=== PATIENT | male | born 1980 | race African-American/Black ===

== ENCOUNTER 2017-02-11 11:16 | Emergency (ER) | payer SELFPAY ==
[~2017-02-11] VITALS: Ht 182.9 cm; Wt 95.0 kg
[~2017-02-11 11:16] MED LIST: HUM100IN SQ
[2017-02-11] MEDS ORDERED: ACETAMINOPHEN 325MG TABLET PO ONE (12:30)
[2017-02-11 14:10] VITALS: BP 144/98
== END 2017-02-11 14:12 | disposition home or self-care (01) ==
LOC: ER 12:26
DX: S13.4XXA Sprain of ligaments of cervical spine, initial encounter (principal); S09.90XA Unspecified injury of head, initial encounter; R03.0 Elevated blood-pressure reading, without diagnosis of hypertension; E11.9 Type 2 diabetes mellitus without complications; Z79.4 Long term (current) use of insulin; V49.9XXA Car occupant (driver) (passenger) injured in unspecified traffic accident, initial encounter; Y93.89 Activity, other specified; Y92.89 Other specified places as the place of occurrence of the external cause; Y99.8 Other external cause status
CPT/HCPCS: 70450; 72125; 99284; Z7610

== ENCOUNTER 2017-10-19 14:22 | Inpatient (IN) | payer OTHER ==
[~2017-10-19] VITALS: Ht 172.7 cm; Wt 78.2 kg
[2017-10-19] MEDS ORDERED: SODIUM CHLORIDE 0.9% 1,000 ML IV ONE ×2 (14:40)
[2017-10-19] MEDS ORDERED: INSULIN REGULAR (HUMULIN R) 300UNITS/3ML SUBCUT ONE (14:45)
[2017-10-19 15:14] LABS: HEMATOCRIT. 26.7 % (42.0-52.0); HEMOGLOBIN. 8.1 g/dL (14.0-18.0); MEAN CORPUSCULAR HEMOGLOBIN 28.2 pg (28.0-32.0); MEAN CORPUSCULAR VOLUME 92.8 fL (80.0-94.0); MEAN PLATELET VOLUME 6.9 fl (7.4-10.4); PLATELET 303 x1000/uL (130-400); RED BLOOD CELL COUNT 2.88 mill/uL (4.7-6.1); RED CELL DISTRIBUTION WIDTH 14.1 % (11.6-14.6)
[2017-10-19 15:20] LABS: PARTIAL THROMBOPLASTIN TIME 28.2 sec (23.4-31.0); PROTHROMBIN TIME 10.8 sec (9.4-11.6)
[2017-10-19 15:25] LABS: CHLORIDE 102 mEq/L (98-107)
[2017-10-19 15:28] LABS: BG BASE EXCESS -18.6 mmol/L (-2.0-2.0); BG CARBOXYHEMOGLOBIN 0.3 % (0.5-1.5); BG DEOXYHEMOGLOBIN 3.6 % (0.0-5.0); BG FRACTION INSPIRED OXYGEN 21; BG HCO3 ACT 6.4 mmol/L (22.0-26.0); BG METHEMOGLOBIN 0.3 % (0.0-1.5); BG OXYGEN SATURATION 96.4 % (92.0-98.5); BG OXYHEMOGLOBIN 95.8 % (94.0-97.0); BG PCO2 14.7 mmHg (35.0-45.0); BG PH 7.258 (7.350-7.450); BG PO2 102.5 mmHg (75.0-100.0); BG SAMPLE SITE RIGHT RADIAL; BG VENT MODE ROOM AIR
[2017-10-19 15:32] LABS: TROPONIN I < 0.02 ng/mL (0.00-0.04)
[2017-10-19] MEDS ORDERED: VANCOMYCIN 1 G PREMIX 200 ML IV ONE (15:45)
[2017-10-19] MEDS ORDERED: LORAZEPAM 2MG/ML CPJ IV ONE ×2 (15:45→18:00)
[2017-10-19] MEDS ORDERED: SODIUM CHLORIDE 0.9% 1000ML BAG (SEPSIS BOLUS) IV ONE (15:45)
[2017-10-19] MEDS ORDERED: PIPERACILLIN/TAZ 3.375G PREMIX 50 ML IV ONE (15:45)
[2017-10-19] MEDS ORDERED: INSULIN REGULAR (HUMULIN R) UD 100 UNITS/ML SYR IV ONE (15:45)
[2017-10-19] MEDS ORDERED: INSULIN REGULAR (DRIP) 100 UNITS in SODIUM CHLORIDE 0.9% 99 ML IV NR (16:00)
[2017-10-19 16:07] LABS: BETA HYDROXYBUTYRATE > 10.0 mMol/L (0.0-0.3)
[2017-10-19 16:20] LABS: PLATELET ESTIMATE NORMAL
[2017-10-19 16:46] LABS: CLARITY URINE CLOUDY (CLEAR); COLOR URINE YELLOW (YELLOW); KETONES URINE 3+ (NEGATIVE); LEUKOCYTE ESTERASE URINE NEGATIVE (NEGATIVE); NITRITE URINE NEGATIVE (NEGATIVE); OCCULT BLOOD URINE 1+ (NEGATIVE); PROTEIN URINE NEGATIVE (NEGATIVE); SPECIFIC GRAVITY URINE 1.024 (1.005-1.030); UROBILINOGEN URINE 0.2 E.U./dL (0.2-1.0)
[2017-10-19 17:05] LABS: *AMPHETAMINES SCREEN URINE NEGATIVE (NEGATIVE); *BARBITURATES SCREEN URINE NEGATIVE (NEGATIVE); *BENZODIAZEPINES SCREEN URINE NEGATIVE (NEGATIVE); *COCAINE SCREEN URINE NEGATIVE (NEGATIVE); CANNABINOID URINE SCREEN NEGATIVE (NEGATIVE); METHADONE URINE SCREEN NEGATIVE (NEGATIVE); OPIATES URINE SCREEN NEGATIVE (NEGATIVE); PHENCYCLIDINE URINE SCREEN NEGATIVE (NEGATIVE)
[2017-10-19] MEDS ORDERED: INSULIN REGULAR (DRIP) 100 UNITS in SODIUM CHLORIDE 0.9% 100 ML IV SCH (17:35)
[2017-10-19] MEDS ORDERED: DIPHENHYDRAMINE 50MG/ML VIAL IV PRN (17:45)
[2017-10-19] MEDS ORDERED: MAGNESIUM/ALUMINUM HYDROXIDE/SIMETHICONE 30ML UDC PO PRN (17:45)
[2017-10-19] MEDS ORDERED: KETOROLAC 15MG/ML VIAL IV PRN (17:45)
[2017-10-19] MEDS ORDERED: ONDANSETRON HCL 4MG/2ML VIAL IV PRN (17:45)
[2017-10-19] MEDS ORDERED: GUAIFENESIN 200MG/10ML SUGAR FREE UDC PO PRN (17:45)
[2017-10-19] MEDS ORDERED: NITROGLYCERIN 0.4MG TABLET SL SL PRN (17:45)
[2017-10-19] MEDS ORDERED: CLONIDINE 0.1MG TABLET PO PRN (17:45)
[2017-10-19] MEDS ORDERED: IPRATROPIUM/ALBUTEROL 0.5-3(2.5)MG/3ML NEB INH PRN (17:45)
[2017-10-19] MEDS ORDERED: ACETAMINOPHEN 325MG TABLET PO PRN (17:45)
[2017-10-19] MEDS ORDERED: DOCUSATE SODIUM 100MG CAPSULE PO PRN (17:45)
[2017-10-19] MEDS ORDERED: NA PHOS,M-B/NA PHOS,DI-BA ENEMA 118ML PR PRN (17:45)
[2017-10-19] MEDS ORDERED: DEXTROSE 50% WATER 50ML SYRINGE IV PRN ×2 (17:45)
[2017-10-19] MEDS ORDERED: LEVOFLOXACIN 500MG PREMIX 100 ML IV SCH (17:45)
[2017-10-19 17:52] LABS: PHOSPHORUS 4.9 mg/dL (2.5-4.9)
[2017-10-19] MEDS ORDERED: CEFTRIAXONE 2 G PREMIX 50 ML IV ONE (18:00)
[2017-10-19] MEDS ORDERED: ACYCLOVIR INJ 600 MG in DEXT 5% WATER 100 ML IV ONE (18:00)
[2017-10-19 18:15] LABS: TOTAL IRON BINDING CAPACITY 151 ug/dL (250-450)
[2017-10-19 19:40] LABS: GLUCOSE CSF 511 mg/dL (41-75)
[2017-10-19 19:43] LABS: PHOSPHORUS 3.9 mg/dL (2.5-4.9)
[2017-10-19 19:58] LABS: VITAMIN B12 SERUM >2000 pg/mL pg/mL (211-911)
[2017-10-19 22:10] LABS: PHOSPHORUS 2.8 mg/dL (2.5-4.9)
[2017-10-20] VITALS (27 sets, daily range): BP systolic 109–178; BP diastolic 67–101
[2017-10-20] MEDS ORDERED: CEFTRIAXONE 2 G PREMIX 50 ML IV NR (03:30)
[2017-10-20] MEDS ORDERED: LEVOFLOXACIN 500MG PREMIX 100 ML IV NR (05:45)
[2017-10-20] MEDS ORDERED: SODIUM CHLORIDE 0.9% 1,000 ML IV SCH (08:00)
[2017-10-20] MEDS: BLOOD SUGAR DIAGNOSTIC STRIP TEST SCH ×16 (08:09→23:05)
[2017-10-20] MEDS: PANTOPRAZOLE SODIUM 40 MG/VIAL IV SCH (08:30)
[2017-10-20] MEDS: INSULIN REGULAR (DRIP) 100 UNITS in SODIUM CHLORIDE 0.9% 100 ML IV SCH ×2 (09:00→13:34)
[2017-10-20 11:51] LABS: HEMATOCRIT. 24.1 % (42.0-52.0); HEMOGLOBIN. 7.7 g/dL (14.0-18.0); MEAN CORPUSCULAR HEMOGLOBIN 28.1 pg (28.0-32.0); MEAN PLATELET VOLUME 6.9 fl (7.4-10.4); PLATELET 265 x1000/uL (130-400); RED BLOOD CELL COUNT 2.73 mill/uL (4.7-6.1); RED CELL DISTRIBUTION WIDTH 13.5 % (11.6-14.6)
[2017-10-20 12:05] LABS: CHLORIDE 120 mEq/L (98-107)
[2017-10-20 12:21] LABS: MEAN CORPUSCULAR VOLUME 89.1 fL (80.0-94.0)
[2017-10-20 13:37] LABS: PLATELET ESTIMATE NORMAL
[2017-10-20 14:05] LABS: PHOSPHORUS 2.5 mg/dL (2.5-4.9)
[2017-10-20] MEDS ORDERED: POTASSIUM CHLORIDE INJ 30 MEQ in SODIUM CHLORIDE 0.45% 1,000 ML IV SCH (15:00)
[2017-10-20] MEDS ORDERED: VANCOMYCIN 1,500 MG in SODIUM CHLORIDE 0.9% 250 ML IV SCH (15:00)
[2017-10-20] MEDS: DEXT 5%/0.45% NACL KCL 30MEQ/L 1,000 ML IV SCH (16:06)
[2017-10-20] MEDS ORDERED: DEXT 5%/0.45% NACL KCL 30MEQ/L 1,000 ML IV SCH (17:00)
[2017-10-20 17:16] LABS: CHLORIDE 124 mEq/L (98-107)
[2017-10-20 23:54] LABS: CHLORIDE 125 mEq/L (98-107)
[2017-10-21] VITALS (48 sets, daily range): BP systolic 113–170; BP diastolic 57–117
[2017-10-21] MEDS: BLOOD SUGAR DIAGNOSTIC STRIP TEST SCH ×19 (01:00→21:00)
[2017-10-21] MEDS: DEXT 5%/0.45% NACL KCL 30MEQ/L 1,000 ML IV SCH ×2 (02:30→06:40)
[2017-10-21] MEDS: INSULIN REGULAR (DRIP) 100 UNITS in SODIUM CHLORIDE 0.9% 100 ML IV SCH (02:53)
[2017-10-21] MEDS ORDERED: VANCOMYCIN 1,500 MG in SODIUM CHLORIDE 0.9% 250 ML IV SCH (06:00)
[2017-10-21 06:35] LABS: BASOPHILS % 0.5 % (0.0-2.0); HEMATOCRIT. 21.4 % (42.0-52.0); HEMOGLOBIN. 7.1 g/dL (14.0-18.0); MEAN CORPUSCULAR HEMOGLOBIN 28.9 pg (28.0-32.0); MEAN CORPUSCULAR VOLUME 87.9 fL (80.0-94.0); MONOCYTES % 6.6 % (2.0-8.0); NEUTROPHILS % 79.9 % (40.0-76.0); PLATELET 261 x1000/uL (130-400); RED BLOOD CELL COUNT 2.44 mill/uL (4.7-6.1)
[2017-10-21 06:50] LABS: CHLORIDE 128 mEq/L (98-107)
[2017-10-21] MEDS ORDERED: LEVOFLOXACIN 500MG PREMIX 100 ML IV SCH (09:00)
[2017-10-21] MEDS: PANTOPRAZOLE SODIUM 40 MG/VIAL IV SCH (10:11)
[2017-10-21] MEDS ORDERED: DEXTROSE 50% WATER 50ML SYRINGE IV PRN (12:15)
[2017-10-21] MEDS: INSULIN LISPRO 100 UNITS/ML SUBCUT SCH ×4 (12:50→18:36)
[2017-10-21] MEDS ORDERED: INSULIN GLARGINE UD 100 UNITS/ML SYR SUBCUT SCH (13:00)
[2017-10-21] MEDS ORDERED: VANCOMYCIN 1 G PREMIX 200 ML IV SCH (18:00)
== END 2017-10-21 21:20 | disposition short-term general hospital (02) | DRG 871 ==
LOC: ER 14:34 → EDBD 14:34 → EDBEDREQ 17:56 → ENRESERV 10-20 06:12 → CVICU 10-20 07:28
PROVIDERS: ADMIT Internal Medicine; ATTEND Internal Medicine
DX: A41.9 Sepsis, unspecified organism (principal); N17.0 Acute kidney failure with tubular necrosis; E43 Unspecified severe protein-calorie malnutrition; G92 Toxic encephalopathy; G03.9 Meningitis, unspecified; E10.10 Type 1 diabetes mellitus with ketoacidosis without coma; E87.0 Hyperosmolality and hypernatremia; D63.8 Anemia in other chronic diseases classified elsewhere; Z79.4 Long term (current) use of insulin; Z91.19 Patient's noncompliance with other medical treatment and regimen; Z68.26 Body mass index [BMI] 26.0-26.9, adult
CPT/HCPCS: 36415; 36600; 51702; 62270; 70450; 71045; 80048; 80053; 80305; 81003; 82010; 82375; 82553; 82607; 82746; 82805; 82945; 82962; 83036; 83540; 83550; 83605; 83735; 84100; 84157; 84484; 85025; 85610; 85730; 87040; 87070; 87077; 87086; 87186; 87205; 87529; 87804; 89050; 93005; 93970; 96365; 96366; 96367; 96368; 96372; 96375; 99291; C9113; G0482; J0133; J0696; J1815; J1885; J1956; J2060; J2543; J3370; J3480; J7030; J7050; J7060

== ENCOUNTER 2018-09-26 13:29 | Emergency (ER) | payer OTHER ==
[~2018-09-26] VITALS: Ht 175.3 cm; Wt 73.0 kg
[2018-09-26 18:20] LABS: BASOPHILS % 0.3 % (0.0-2.0); EOSINOPHILS % 0.1 % (0.0-5.0); HEMATOCRIT. 24.8 % (42.0-52.0); HEMOGLOBIN. 8.2 g/dL (14.0-18.0); LYMPHOCYTES % 7.3 % (20.0-50.0); MEAN CORPUSCULAR HEMOGLOBIN 28.5 pg (28.0-32.0); MEAN CORPUSCULAR VOLUME 86.6 fL (80.0-94.0); MEAN PLATELET VOLUME 7.1 fl (7.4-10.4); MONOCYTES % 6.2 % (2.0-8.0); NEUTROPHILS % 86.1 % (40.0-76.0); PLATELET 293 x1000/uL (130-400); RED BLOOD CELL COUNT 2.86 mill/uL (4.7-6.1); RED CELL DISTRIBUTION WIDTH 16.6 % (11.6-14.6)
[2018-09-26 18:21] LABS: CHLORIDE 119 mEq/L (98-107)
[2018-09-26] MEDS ORDERED: DEXTROSE 50% WATER 50ML SYRINGE IV ONE ×4 (19:45→20:30)
[2018-09-26] MEDS ORDERED: DEXT 5%/0.45% NACL 500ML 500 ML IV ONE (19:45)
[2018-09-26] MEDS ORDERED: ACETAMINOPHEN 650MG/20.3ML UDC PO ONE (21:30)
[2018-09-26 22:49] VITALS: BP 122/69
== END 2018-09-26 23:08 | disposition short-term general hospital (02) ==
LOC: ER 13:50 → CANBEDREQ 09-27 02:08
DX: E11.649 Type 2 diabetes mellitus with hypoglycemia without coma (principal); N17.9 Acute kidney failure, unspecified; G93.40 Encephalopathy, unspecified; I10 Essential (primary) hypertension; Z79.4 Long term (current) use of insulin
CPT/HCPCS: 36415; 82962; 84484; 93005; 96365; 96366; 96376; 99291

== ENCOUNTER 2018-10-01 10:52 | Emergency (ER) | payer OTHER ==
[~2018-10-01] VITALS: Ht 180.3 cm; Wt 85.0 kg
[2018-10-01 12:08] LABS: CLARITY URINE CLEAR (CLEAR); COLOR URINE YELLOW (YELLOW); KETONES URINE NEGATIVE (NEGATIVE); LEUKOCYTE ESTERASE URINE TRACE (NEGATIVE); NITRITE URINE NEGATIVE (NEGATIVE); OCCULT BLOOD URINE 2+ (NEGATIVE); PROTEIN URINE 3+ (NEGATIVE); SPECIFIC GRAVITY URINE 1.009 (1.005-1.030); UROBILINOGEN URINE 0.2 E.U./dL (0.2-1.0)
[2018-10-01] MEDS ORDERED: DEXTROSE 50% WATER 50ML SYRINGE IV ONE ×2 (12:33→16:15)
[2018-10-01 14:18] LABS: BASOPHILS % 0.5 % (0.0-2.0); HEMATOCRIT. 25.4 % (42.0-52.0); HEMOGLOBIN. 8.2 g/dL (14.0-18.0); LYMPHOCYTES % 20.3 % (20.0-50.0); MEAN CORPUSCULAR HEMOGLOBIN 28.5 pg (28.0-32.0); MEAN CORPUSCULAR VOLUME 88.4 fL (80.0-94.0); MEAN PLATELET VOLUME 7.2 fl (7.4-10.4); NEUTROPHILS % 72.2 % (40.0-76.0); PLATELET 287 x1000/uL (130-400); RED BLOOD CELL COUNT 2.88 mill/uL (4.7-6.1); RED CELL DISTRIBUTION WIDTH 16.8 % (11.6-14.6)
[2018-10-01 14:22] LABS: CHLORIDE 122 mEq/L (98-107)
[2018-10-01] MEDS ORDERED: SULFAMETHOXAZOLE/TRIMETHOPRIM 800/160MG TABLET PO ONE (15:30)
[2018-10-01] MEDS ORDERED: ATENOLOL 25MG TABLET PO ONE (16:15)
[2018-10-01] MEDS ORDERED: LABETALOL 5MG/ML SYR 20 MG/4 ML SYRINGE IV ONE (17:30)
[2018-10-01] MEDS ORDERED: LABETALOL HCL 20MG/4ML CARPUJECT IV SCH (17:45)
[2018-10-01 18:00] VITALS: BP 161/94
== END 2018-10-01 18:07 | disposition short-term general hospital (02) ==
LOC: ER 10:52
DX: E11.649 Type 2 diabetes mellitus with hypoglycemia without coma (principal); N17.9 Acute kidney failure, unspecified; I10 Essential (primary) hypertension; R53.1 Weakness; R42 Dizziness and giddiness; Z79.4 Long term (current) use of insulin
CPT/HCPCS: 36415; 80053; 81003; 82962; 84484; 85025; 87086; 93005; 96374; 99285; J3490

== ENCOUNTER 2018-10-05 08:45 | Emergency (ER) | payer OTHER ==
[~2018-10-05] VITALS: Ht 188 cm; Wt 93.0 kg
[2018-10-05] MEDS ORDERED: DEXTROSE 50% WATER 50ML SYRINGE IV ONE ×2 (09:14→09:45)
[2018-10-05 10:19] LABS: BASOPHILS % 0.9 % (0.0-2.0); EOSINOPHILS % 1.7 % (0.0-5.0); HEMATOCRIT. 26.1 % (42.0-52.0); HEMOGLOBIN. 8.4 g/dL (14.0-18.0); LYMPHOCYTES % 16.2 % (20.0-50.0); MEAN CORPUSCULAR HEMOGLOBIN 28.3 pg (28.0-32.0); MEAN CORPUSCULAR VOLUME 88.2 fL (80.0-94.0); MEAN PLATELET VOLUME 7.2 fl (7.4-10.4); MONOCYTES % 6.6 % (2.0-8.0); NEUTROPHILS % 74.6 % (40.0-76.0); PLATELET 262 x1000/uL (130-400); RED BLOOD CELL COUNT 2.96 mill/uL (4.7-6.1); RED CELL DISTRIBUTION WIDTH 16.6 % (11.6-14.6)
[2018-10-05 10:20] LABS: CHLORIDE 121 mEq/L (98-107)
[2018-10-05 10:30] LABS: CLARITY URINE CLEAR (CLEAR); COLOR URINE YELLOW (YELLOW); KETONES URINE NEGATIVE (NEGATIVE); LEUKOCYTE ESTERASE URINE 1+ (NEGATIVE); NITRITE URINE NEGATIVE (NEGATIVE); OCCULT BLOOD URINE 2+ (NEGATIVE); PROTEIN URINE 3+ (NEGATIVE); SPECIFIC GRAVITY URINE 1.009 (1.005-1.030); UROBILINOGEN URINE 0.2 E.U./dL (0.2-1.0)
[2018-10-05] MEDS ORDERED: LEVOFLOXACIN 250MG PREMIX 50 ML IV ONE (12:45)
[2018-10-05] MEDS ORDERED: FLUCONAZOLE 100MG TABLET PO ONE (12:45)
[2018-10-05] MEDS ORDERED: SODIUM CHLORIDE 0.9% 1,000 ML IV NR (14:07)
[2018-10-05 16:57] VITALS: BP 162/92
== END 2018-10-05 17:34 | disposition short-term general hospital (02) ==
LOC: ER 08:45
DX: E11.649 Type 2 diabetes mellitus with hypoglycemia without coma (principal); N39.0 Urinary tract infection, site not specified; N28.9 Disorder of kidney and ureter, unspecified; I10 Essential (primary) hypertension; Z79.4 Long term (current) use of insulin
CPT/HCPCS: 36415; 80053; 81003; 82962; 83605; 85025; 87077; 87086; 87186; 93005; 96361; 96365; 96375; 99285; J1956

== ENCOUNTER 2018-12-09 19:32 | Emergency (ER) | payer OTHER ==
[~2018-12-09] VITALS: Ht 182.9 cm; Wt 127.0 kg
[2018-12-09] MEDS ORDERED: SODIUM CHLORIDE 0.9% 1,000 ML IV ONE ×3 (20:20→21:15)
[2018-12-09 20:53] LABS: HEMATOCRIT. 30.3 % (42.0-52.0); HEMOGLOBIN. 9.5 g/dL (14.0-18.0); RED BLOOD CELL COUNT 3.51 mill/uL (4.7-6.1)
[2018-12-09 20:54] LABS: EOSINOPHILS % 2.1 % (0.0-5.0); LYMPHOCYTES % 21.1 % (20.0-50.0); MEAN CORPUSCULAR VOLUME 86.4 fL (80.0-94.0); MEAN PLATELET VOLUME 8.8 fl (7.4-10.4); MONOCYTES % 8.4 % (2.0-8.0); NEUTROPHILS % 67.4 % (40.0-76.0); PLATELET 251 x1000/uL (130-400); RED CELL DISTRIBUTION WIDTH 15.9 % (11.6-14.6)
[2018-12-09 20:59] LABS: CHLORIDE 98 mEq/L (98-107)
[2018-12-09 21:07] LABS: BETA HYDROXYBUTYRATE 0.2 mMol/L (0.0-0.3)
[2018-12-09] MEDS ORDERED: INSULIN REGULAR (DRIP) 100 UNITS in SODIUM CHLORIDE 0.9% 100 ML IV NR (21:15)
[2018-12-09] MEDS ORDERED: INSULIN REGULAR (DRIP) 100 UNITS in SODIUM CHLORIDE 0.9% 100 ML IV ONE (21:15)
[2018-12-09 21:24] LABS: CLARITY URINE CLOUDY (CLEAR); COLOR URINE YELLOW (YELLOW); KETONES URINE NEGATIVE (NEGATIVE); LEUKOCYTE ESTERASE URINE 1+ (NEGATIVE); NITRITE URINE NEGATIVE (NEGATIVE); OCCULT BLOOD URINE 3+ (NEGATIVE); PH URINE 5.5 (4.5-8.0); PROTEIN URINE 3+ (NEGATIVE); SPECIFIC GRAVITY URINE 1.015 (1.005-1.030); UROBILINOGEN URINE 0.2 E.U./dL (0.2-1.0)
[2018-12-09 21:37] LABS: BG BASE EXCESS -15.1 mmol/L (-2.0-2.0); BG CARBOXYHEMOGLOBIN 0.2 % (0.5-1.5); BG DEOXYHEMOGLOBIN 5.1 % (0.0-5.0); BG FRACTION INSPIRED OXYGEN 21; BG HCO3 ACT 10.8 mmol/L (22.0-26.0); BG METHEMOGLOBIN 0.1 % (0.0-1.5); BG OXYGEN SATURATION 94.9 % (92.0-98.5); BG OXYHEMOGLOBIN 94.6 % (94.0-97.0); BG PCO2 26.1 mmHg (35.0-45.0); BG PH 7.233 (7.350-7.450); BG PO2 81.9 mmHg (75.0-100.0); BG SAMPLE SITE RIGHT RADIAL; BG TOTAL HEMOGLOBIN 12.1 g/dL (12.0-18.0); BG VENT MODE ROOM AIR
[2018-12-10 01:07] VITALS: BP 180/115
== END 2018-12-10 01:07 | disposition short-term general hospital (02) ==
LOC: ER 19:32 → CANBEDREQ 12-10 03:20
DX: E11.00 Type 2 diabetes mellitus with hyperosmolarity without nonketotic hyperglycemic-hyperosmolar coma (NKHHC) (principal); N17.9 Acute kidney failure, unspecified; E86.0 Dehydration; I10 Essential (primary) hypertension; Z79.4 Long term (current) use of insulin
CPT/HCPCS: 36415; 36600; 71045; 80053; 81003; 82010; 82375; 82805; 82962; 85025; 93005; 96361; 96365; 99285; J1815; J7030; J7050

== ENCOUNTER 2019-01-11 14:13 | Inpatient (IN) | payer MEDICAID, OTHER ==
[~2019-01-11] VITALS: Ht 182.9 cm; Wt 89.8 kg
[2019-01-11] MEDS ORDERED: SODIUM CHLORIDE 0.9% 1,000 ML IV ONE ×3 (15:02→18:45)
[2019-01-11 15:35] LABS: BG BASE EXCESS -19.8 mmol/L (-2.0-2.0); BG CARBOXYHEMOGLOBIN 0.9 % (0.5-1.5); BG DEOXYHEMOGLOBIN 4.4 % (0.0-5.0); BG FRACTION INSPIRED OXYGEN 21; BG METHEMOGLOBIN 0.3 % (0.0-1.5); BG OXYGEN SATURATION 95.5 % (92.0-98.5); BG OXYHEMOGLOBIN 94.4 % (94.0-97.0); BG PCO2 19.9 mmHg (35.0-45.0); BG PH 7.165 (7.350-7.450); BG PO2 90.9 mmHg (75.0-100.0); BG SAMPLE SITE RIGHT BRACHIAL; BG TOTAL HEMOGLOBIN 8.8 g/dL (12.0-18.0); BG VENT MODE ROOM AIR
[2019-01-11 15:52] LABS: BASOPHILS % 1.6 % (0.0-2.0); EOSINOPHILS % 0.9 % (0.0-5.0); HEMATOCRIT. 24.9 % (42.0-52.0); HEMOGLOBIN. 7.7 g/dL (14.0-18.0); LYMPHOCYTES % 8.6 % (20.0-50.0); MEAN CORPUSCULAR VOLUME 83.6 fL (80.0-94.0); MEAN PLATELET VOLUME 8.1 fl (7.4-10.4); MONOCYTES % 5.8 % (2.0-8.0); NEUTROPHILS % 83.1 % (40.0-76.0); PLATELET 211 x1000/uL (130-400); RED BLOOD CELL COUNT 2.98 mill/uL (4.7-6.1); RED CELL DISTRIBUTION WIDTH 15.8 % (11.6-14.6)
[2019-01-11 15:58] LABS: PROTHROMBIN TIME 10.5 sec (9.6-11.0)
[2019-01-11 15:59] LABS: CHLORIDE 109 mEq/L (98-107)
[2019-01-11 16:03] LABS: ETHANOL BLOOD < 10 mg/dL
[2019-01-11 16:03] LABS: CLARITY URINE CLOUDY (CLEAR); COLOR URINE YELLOW (YELLOW); KETONES URINE NEGATIVE (NEGATIVE); LEUKOCYTE ESTERASE URINE 2+ (NEGATIVE); NITRITE URINE NEGATIVE (NEGATIVE); OCCULT BLOOD URINE 3+ (NEGATIVE); PROTEIN URINE 3+ (NEGATIVE); SPECIFIC GRAVITY URINE 1.016 (1.005-1.030); UROBILINOGEN URINE 0.2 E.U./dL (0.2-1.0)
[2019-01-11] MEDS ORDERED: INSULIN REGULAR (DRIP) 100 UNITS in SODIUM CHLORIDE 0.9% 100 ML IV ONE (16:13)
[2019-01-11] MEDS ORDERED: SODIUM CHLORIDE 0.9% 1,000 ML IV SCH (16:45)
[2019-01-11] MEDS ORDERED: DOCUSATE SODIUM 100MG CAPSULE PO PRN (16:45)
[2019-01-11] MEDS ORDERED: INSULIN REGULAR (DRIP) 100 UNITS in SODIUM CHLORIDE 0.9% 100 ML IV SCH ×3 (16:45→22:41)
[2019-01-11] MEDS ORDERED: GUAIFENESIN 200MG/10ML SUGAR FREE UDC PO PRN (16:45)
[2019-01-11] MEDS ORDERED: MORPHINE SULFATE 4 MG/ML CPJ (NOT FOR IM USE) IV ONE (16:45)
[2019-01-11 18:13] LABS: PHOSPHORUS 5.5 mg/dL (2.5-4.9)
[2019-01-11 18:26] LABS: BG CARBOXYHEMOGLOBIN 0.6 % (0.5-1.5); BG HCO3 ACT 7.2 mmol/L (22.0-26.0); BG METHEMOGLOBIN 0.1 % (0.0-1.5); BG OXYHEMOGLOBIN 95.3 % (94.0-97.0); BG PCO2 21.4 mmHg (35.0-45.0); BG PH 7.143 (7.350-7.450); BG PO2 96.5 mmHg (75.0-100.0); BG SAMPLE SITE RIGHT BRACHIAL; BG TOTAL HEMOGLOBIN 8.6 g/dL (12.0-18.0); BG VENT MODE ROOM AIR
[2019-01-11] MEDS ORDERED: CEFTRIAXONE 1 G PREMIX 50 ML IV SCH (20:15)
[2019-01-11 20:18] LABS: PHOSPHORUS 5.1 mg/dL (2.5-4.9)
[2019-01-11] MEDS: FAMOTIDINE 20MG/2ML VIAL IV SCH (21:00)
[2019-01-11] MEDS ORDERED: DEXTROSE 50% WATER 50ML SYRINGE IV PRN ×3 (21:30→22:45)
[2019-01-11] MEDS ORDERED: INSULIN LISPRO 100 UNITS/ML SUBCUT ONE (21:30)
[2019-01-11] MEDS: BLOOD SUGAR DIAGNOSTIC STRIP TEST SCH ×3 (21:45→23:45)
[2019-01-11] MEDS: INSULIN LISPRO (HIGH DOSE) 100 UNITS/ML SUBCUT SCH (21:57)
[2019-01-11 22:10] LABS: PHOSPHORUS 5.2 mg/dL (2.5-4.9)
[2019-01-11] MEDS ORDERED: SODIUM BICARBONATE 8.4% 1 MEQ/ML 50ML SYR IV ONE (22:19)
[2019-01-12] MEDS: BLOOD SUGAR DIAGNOSTIC STRIP TEST SCH ×21 (00:45→20:56)
[2019-01-12 05:39] LABS: BASOPHILS % 0.9 % (0.0-2.0); CHLORIDE 123 mEq/L (98-107); HEMATOCRIT. 23.2 % (42.0-52.0); HEMOGLOBIN. 7.6 g/dL (14.0-18.0); LYMPHOCYTES % 19.6 % (20.0-50.0); MEAN CORPUSCULAR HEMOGLOBIN 26.6 pg (28.0-32.0); MEAN CORPUSCULAR VOLUME 81.3 fL (80.0-94.0); MEAN PLATELET VOLUME 7.8 fl (7.4-10.4); MONOCYTES % 8.8 % (2.0-8.0); NEUTROPHILS % 69.7 % (40.0-76.0); PLATELET 200 x1000/uL (130-400); RED BLOOD CELL COUNT 2.85 mill/uL (4.7-6.1); RED CELL DISTRIBUTION WIDTH 15.4 % (11.6-14.6)
[2019-01-12] MEDS ORDERED: SODIUM BICARBONATE 8.4% 1 MEQ/ML 50ML SYR IV SCH (06:45)
[2019-01-12] MEDS: INSULIN LISPRO (HIGH DOSE) 100 UNITS/ML SUBCUT SCH ×3 (08:20→21:14)
[2019-01-12] MEDS: FAMOTIDINE 20MG/2ML VIAL IV SCH ×2 (09:00→21:01)
[2019-01-12 13:10] LABS: CHLORIDE 124 mEq/L (98-107)
[2019-01-12 13:18] LABS: BETA HYDROXYBUTYRATE 0.2 mMol/L (0.0-0.3)
[2019-01-12 13:19] LABS: BG BASE EXCESS -17.8 mmol/L (-2.0-2.0); BG CARBOXYHEMOGLOBIN 0.5 % (0.5-1.5); BG DEOXYHEMOGLOBIN 3.8 % (0.0-5.0); BG FRACTION INSPIRED OXYGEN 21; BG HCO3 ACT 8.6 mmol/L (22.0-26.0); BG METHEMOGLOBIN 0.2 % (0.0-1.5); BG OXYGEN SATURATION 96.2 % (92.0-98.5); BG OXYHEMOGLOBIN 95.5 % (94.0-97.0); BG PCO2 22.5 mmHg (35.0-45.0); BG PH 7.199 (7.350-7.450); BG PO2 95.5 mmHg (75.0-100.0); BG SAMPLE SITE RIGHT RADIAL; BG VENT MODE ROOM AIR
[2019-01-12] MEDS ORDERED: SODIUM BICARBONATE 8.4% 1 MEQ/ML 50ML SYR IV NR (13:45)
[2019-01-12 14:33] LABS: CREATINE KINASE 153 IU/L (39-308)
[2019-01-12] MEDS ORDERED: SODIUM BICARBONATE 8.4% 1 MEQ/ML 50ML SYR IV ONE ×2 (15:00→15:30)
[2019-01-12 15:11] LABS: HEPATITIS B SURFACE ANTIGEN NEGATIVE
[2019-01-12 15:41] LABS: HEPATITIS A AB IGM NEGATIVE (NEGATIVE)
[2019-01-12] MEDS: SODIUM BICARBONATE 100 MEQ in DEXTROSE 5% WATER 1,000 ML IV SCH (16:47)
[2019-01-12 16:49] LABS: BG BASE EXCESS -12.9 mmol/L (-2.0-2.0); BG CARBOXYHEMOGLOBIN 0.9 % (0.5-1.5); BG DEOXYHEMOGLOBIN 3.7 % (0.0-5.0); BG FRACTION INSPIRED OXYGEN 21; BG HCO3 ACT 11.9 mmol/L (22.0-26.0); BG METHEMOGLOBIN 0.1 % (0.0-1.5); BG OXYGEN SATURATION 96.3 % (92.0-98.5); BG OXYHEMOGLOBIN 95.3 % (94.0-97.0); BG PCO2 23.7 mmHg (35.0-45.0); BG PH 7.318 (7.350-7.450); BG PO2 90.3 mmHg (75.0-100.0); BG SAMPLE SITE RIGHT RADIAL; BG TOTAL HEMOGLOBIN 7.6 g/dL (12.0-18.0); BG VENT MODE ROOM AIR
[2019-01-12 18:00] VITALS: BP 148/93
[2019-01-12 20:00] VITALS: BP_SYST 140; BP_SYST 154; BP_DIAS 69; BP_DIAS 99
[2019-01-12] MEDS ORDERED: CEFTRIAXONE 1 G PREMIX 50 ML IV SCH (20:00)
[2019-01-12] MEDS ORDERED: INSULIN GLARGINE UD 100 UNITS/ML SYR SUBCUT SCH (22:00)
[2019-01-12] MEDS: TRAMADOL 50MG TABLET PO PRN (22:44)
[2019-01-13] VITALS (7 sets, daily range): BP systolic 117–188; BP diastolic 71–105
[2019-01-13] MEDS ORDERED: INSU100I28 SQ ×2 (01:54→05:04)
[2019-01-13] MEDS ORDERED: SODIUM BICARBONATE 100 MEQ in DEXTROSE 5% WATER 1,000 ML IV SCH (02:00)
[2019-01-13] MEDS: SODIUM BICARBONATE 100 MEQ in DEXTROSE 5% WATER 1,000 ML IV SCH (04:00)
[2019-01-13] MEDS ORDERED: INSLIS SUBCUT (05:02)
[2019-01-13] MEDS ORDERED: AMLO5TAB88 MT (05:04)
[2019-01-13] MEDS ORDERED: ATEN-42 MT (05:04)
[2019-01-13] MEDS: BLOOD SUGAR DIAGNOSTIC STRIP TEST SCH ×4 (06:00→21:23)
[2019-01-13] MEDS: INSULIN LISPRO (HIGH DOSE) 100 UNITS/ML SUBCUT SCH ×4 (06:39→22:18)
[2019-01-13 07:49] LABS: CHLORIDE 118 mEq/L (98-107)
[2019-01-13] MEDS ORDERED: AMLO1TAB15 MT (08:18)
[2019-01-13] MEDS ORDERED: POTASSIUM CHLORIDE 20MEQ TABLET SR PO NR (09:00)
[2019-01-13] MEDS: CITRIC ACID/SODIUM CITRATE SOLN 15ML UDC PO SCH ×3 (09:16→17:29)
[2019-01-13] MEDS: ATENOLOL 25MG TABLET PO SCH (09:17)
[2019-01-13] MEDS: AMLODIPINE 10MG TABLET PO SCH (09:18)
[2019-01-13 10:19] LABS: BASOPHILS % 1.8 % (0.0-2.0); EOSINOPHILS % 1.4 % (0.0-5.0); HEMATOCRIT. 23.4 % (42.0-52.0); HEMOGLOBIN. 7.6 g/dL (14.0-18.0); LYMPHOCYTES % 27.9 % (20.0-50.0); MEAN CORPUSCULAR HEMOGLOBIN 26.5 pg (28.0-32.0); MEAN CORPUSCULAR VOLUME 81.4 fL (80.0-94.0); MEAN PLATELET VOLUME 8.5 fl (7.4-10.4); MONOCYTES % 11.9 % (2.0-8.0); PLATELET 225 x1000/uL (130-400); RED BLOOD CELL COUNT 2.87 mill/uL (4.7-6.1); RED CELL DISTRIBUTION WIDTH 15.9 % (11.6-14.6)
[2019-01-13] MEDS: SODIUM BICARBONATE 100 MEQ in SODIUM CHLORIDE 0.45% 1,000 ML IV SCH (10:49)
[2019-01-13] MEDS: INSULIN GLARGINE UD 100 UNITS/ML SYR SUBCUT SCH ×2 (10:51→22:18)
[2019-01-13] MEDS: TRAMADOL 50MG TABLET PO PRN (21:49)
[2019-01-13] MEDS: FAMOTIDINE 20MG/2ML VIAL IV SCH (21:50)
[2019-01-13] MEDS: CEFTRIAXONE 1 G PREMIX 50 ML IV SCH (21:50)
[2019-01-14] VITALS (12 sets, daily range): BP systolic 134–169; BP diastolic 79–97
[2019-01-14] MEDS: BLOOD SUGAR DIAGNOSTIC STRIP TEST SCH ×4 (05:54→21:21)
[2019-01-14] MEDS: SODIUM BICARBONATE 100 MEQ in SODIUM CHLORIDE 0.45% 1,000 ML IV SCH (05:55)
[2019-01-14] MEDS: INSULIN LISPRO (HIGH DOSE) 100 UNITS/ML SUBCUT SCH ×4 (06:03→21:33)
[2019-01-14] MEDS: ONDANSETRON HCL 4MG/2ML INJ IV PRN ×2 (07:03→13:28)
[2019-01-14 07:40] LABS: BASOPHILS % 1.1 % (0.0-2.0); EOSINOPHILS % 2.8 % (0.0-5.0); LYMPHOCYTES % 41.5 % (20.0-50.0); MEAN CORPUSCULAR HEMOGLOBIN 26.8 pg (28.0-32.0); MEAN CORPUSCULAR VOLUME 81.1 fL (80.0-94.0); MEAN PLATELET VOLUME 7.7 fl (7.4-10.4); MONOCYTES % 11.2 % (2.0-8.0); NEUTROPHILS % 43.4 % (40.0-76.0); PLATELET 194 x1000/uL (130-400); RED BLOOD CELL COUNT 2.45 mill/uL (4.7-6.1); RED CELL DISTRIBUTION WIDTH 15.8 % (11.6-14.6)
[2019-01-14 08:10] LABS: HEMATOCRIT. 19.8 % (42.0-52.0); HEMOGLOBIN. 6.6 g/dL (14.0-18.0)
[2019-01-14] MEDS: ATENOLOL 25MG TABLET PO SCH (09:33)
[2019-01-14] MEDS: AMLODIPINE 10MG TABLET PO SCH (09:34)
[2019-01-14] MEDS: INSULIN GLARGINE UD 100 UNITS/ML SYR SUBCUT SCH ×2 (09:35→21:33)
[2019-01-14] MEDS ORDERED: POTASSIUM CHLORIDE 20MEQ TABLET SR PO SCH (09:45)
[2019-01-14] MEDS: TRAMADOL 50MG TABLET PO PRN (12:35)
[2019-01-14] MEDS: CITRIC ACID/SODIUM CITRATE SOLN 15ML UDC PO SCH ×2 (13:28→18:18)
[2019-01-14] MEDS ORDERED: EPOETIN ALFA 10000UNITS/ML VIAL SUBCUT SCH (21:00)
[2019-01-14] MEDS: FAMOTIDINE 20MG/2ML VIAL IV SCH (21:28)
[2019-01-14] MEDS: CEFTRIAXONE 1 G PREMIX 50 ML IV SCH (21:28)
[2019-01-15] VITALS: BP 155/84
[2019-01-15 04:00] VITALS: BP 135/72
[2019-01-15] MEDS: BLOOD SUGAR DIAGNOSTIC STRIP TEST SCH ×3 (05:55→12:30)
[2019-01-15] MEDS: INSULIN LISPRO (HIGH DOSE) 100 UNITS/ML SUBCUT SCH ×2 (06:10→12:40)
[2019-01-15 07:39] LABS: BASOPHILS % 0.6 % (0.0-2.0); HEMATOCRIT. 27.9 % (42.0-52.0); HEMOGLOBIN. 9.3 g/dL (14.0-18.0); LYMPHOCYTES % 30.7 % (20.0-50.0); MEAN CORPUSCULAR HEMOGLOBIN 27.5 pg (28.0-32.0); MEAN CORPUSCULAR VOLUME 82.3 fL (80.0-94.0); MEAN PLATELET VOLUME 7.8 fl (7.4-10.4); MONOCYTES % 11.2 % (2.0-8.0); NEUTROPHILS % 54.5 % (40.0-76.0); PLATELET 199 x1000/uL (130-400); RED BLOOD CELL COUNT 3.39 mill/uL (4.7-6.1); RED CELL DISTRIBUTION WIDTH 15.6 % (11.6-14.6)
[2019-01-15 07:46] LABS: CHLORIDE 114 mEq/L (98-107)
[2019-01-15 08:00] VITALS: BP 147/90
[2019-01-15] MEDS: CITRIC ACID/SODIUM CITRATE SOLN 15ML UDC PO SCH (08:27)
[2019-01-15] MEDS: AMLODIPINE 10MG TABLET PO SCH (08:28)
[2019-01-15] MEDS: ATENOLOL 25MG TABLET PO SCH (08:28)
[2019-01-15] MEDS ORDERED: POTASSIUM CHLORIDE 20MEQ TABLET SR PO NR (10:15)
[2019-01-15] MEDS: INSULIN GLARGINE UD 100 UNITS/ML SYR SUBCUT SCH (10:37)
[2019-01-15 11:13] VITALS: BP 147/90
[2019-01-15 12:00] VITALS: BP 160/103
== END 2019-01-15 13:20 | disposition home or self-care (01) | DRG 420 ==
LOC: ER 14:13 → EDBEDREQ 16:19 → EDBEDREQTM 16:19 → EDBEDREQSVC 16:19 → SUPCPDRO 16:40 → 8WST 01-12 16:17 → EDBEDREQSVC 01-12 16:58 → ENRESERV 01-12 17:00
PROVIDERS: ADMIT Hospitalist; ATTEND Hospitalist
PROC: 30233N1 Transfusion of Nonautologous Red Blood Cells into Peripheral Vein, Percutaneous Approach (ICD-10-PCS; principal; 2019-01-14)
DX: E10.10 Type 1 diabetes mellitus with ketoacidosis without coma (principal); E43 Unspecified severe protein-calorie malnutrition; N17.9 Acute kidney failure, unspecified; E10.22 Type 1 diabetes mellitus with diabetic chronic kidney disease; D63.1 Anemia in chronic kidney disease; I12.9 Hypertensive chronic kidney disease with stage 1 through stage 4 chronic kidney disease, or unspecified chronic kidney disease; N39.0 Urinary tract infection, site not specified; Z79.4 Long term (current) use of insulin; N18.5 Chronic kidney disease, stage 5
CPT/HCPCS: 36415; 36600; 71045; 76770; 80048; 80320; 82010; 82375; 82550; 82805; 82962; 83605; 83735; 84100; 86705; 86709; 86803; 86850; 86900; 86920; 87340; 93005; 93970; 96361; 96365; 96375; 99291; G0378; J0696; J0885; J1815; J2270; J2405; J3490; J7030; J7040; J7042; J7050; J7070; P9016; G0480

== ENCOUNTER 2019-04-12 16:40 | Emergency (ER) | payer MEDICAID ==
[~2019-04-12] VITALS: Ht 185.4 cm; Wt 86.0 kg
[~2019-04-12 16:40] MED LIST changes: +AMLO1TAB15 MT; +AMLO5TAB88 MT; +ATEN-42 MT; -HUM100IN SQ; +INSLIS SUBCUT; +INSU100I28 SQ
[2019-04-12] MEDS ORDERED: ONDANSETRON HCL 4MG/2ML INJ IV STA (17:11)
[2019-04-12] MEDS ORDERED: CLONIDINE 0.2MG TABLET PO ONE (17:15)
[2019-04-12 17:35] LABS: BASOPHILS % 1.4 % (0.0-2.0); EOSINOPHILS % 1.3 % (0.0-5.0); HEMATOCRIT. 29.1 % (42.0-52.0); HEMOGLOBIN. 9.2 g/dL (14.0-18.0); LYMPHOCYTES % 20.3 % (20.0-50.0); MEAN CORPUSCULAR HEMOGLOBIN 26.6 pg (28.0-32.0); MEAN PLATELET VOLUME 8.1 fl (7.4-10.4); MONOCYTES % 5.5 % (2.0-8.0); NEUTROPHILS % 71.5 % (40.0-76.0); PLATELET 318 x1000/uL (130-400); RED BLOOD CELL COUNT 3.46 mill/uL (4.7-6.1); RED CELL DISTRIBUTION WIDTH 15.2 % (11.6-14.6)
[2019-04-12 17:40] LABS: CHLORIDE 107 mEq/L (98-107)
[2019-04-12 17:42] LABS: PROTHROMBIN TIME 10.4 sec (9.6-11.0)
[2019-04-12] MEDS ORDERED: INSULIN REGULAR (DRIP) 100 UNITS in SODIUM CHLORIDE 0.9% 100 ML IV ONE (17:55)
[2019-04-12 20:55] LABS: BG BASE EXCESS -15.7 mmol/L (-2.0-2.0); BG DEOXYHEMOGLOBIN 3.3 % (0.0-5.0); BG FRACTION INSPIRED OXYGEN 21; BG OXYGEN SATURATION 96.7 % (92.0-98.5); BG OXYHEMOGLOBIN 96.7 % (94.0-97.0); BG PCO2 23.4 mmHg (35.0-45.0); BG PH 7.248 (7.350-7.450); BG PO2 98.7 mmHg (75.0-100.0); BG SAMPLE SITE RIGHT RADIAL; BG TOTAL HEMOGLOBIN 8.4 g/dL (12.0-18.0); BG VENT MODE ROOM AIR
[2019-04-12 21:56] VITALS: BP 147/97
== END 2019-04-12 22:21 | disposition short-term general hospital (02) ==
LOC: ER 16:40 → CANBEDREQ 18:58 → ER 22:21
DX: E11.10 Type 2 diabetes mellitus with ketoacidosis without coma (principal); I12.0 Hypertensive chronic kidney disease with stage 5 chronic kidney disease or end stage renal disease; N18.6 End stage renal disease; Z99.2 Dependence on renal dialysis; Z79.4 Long term (current) use of insulin; Z79.899 Other long term (current) drug therapy
CPT/HCPCS: 36415; 36600; 71045; 80048; 80053; 82375; 82805; 82962; 83690; 83735; 83880; 84100; 84484; 85025; 85610; 93005; 96365; 96375; 99291; J1815; J2405; J7050

== ENCOUNTER 2019-05-03 18:07 | Emergency (ER) | payer MEDICAID ==
[~2019-05-03] VITALS: Ht 182.9 cm; Wt 77.0 kg
[2019-05-03] MEDS ORDERED: ONDANSETRON HCL 4MG/2ML INJ IV STA (20:50)
[2019-05-03 21:38] LABS: BG BASE EXCESS 1.5 mmol/L (-2.0-2.0); BG CARBOXYHEMOGLOBIN 0.2 % (0.5-1.5); BG DEOXYHEMOGLOBIN 9.9 % (0.0-5.0); BG FRACTION INSPIRED OXYGEN 21; BG HCO3 ACT 26.2 mmol/L (22.0-26.0); BG METHEMOGLOBIN 0.1 % (0.0-1.5); BG OXYGEN SATURATION 90.1 % (92.0-98.5); BG OXYHEMOGLOBIN 89.8 % (94.0-97.0); BG PCO2 41.8 mmHg (35.0-45.0); BG PH 7.415 (7.350-7.450); BG PO2 59.2 mmHg (75.0-100.0); BG SAMPLE SITE RIGHT RADIAL; BG TOTAL HEMOGLOBIN 9.7 g/dL (12.0-18.0); BG VENT MODE ROOM AIR
[2019-05-03 21:47] LABS: HEMATOCRIT. 30.7 % (42.0-52.0); HEMOGLOBIN. 9.7 g/dL (14.0-18.0); MEAN CORPUSCULAR HEMOGLOBIN 27.4 pg (28.0-32.0); MEAN CORPUSCULAR VOLUME 86.7 fL (80.0-94.0); RED BLOOD CELL COUNT 3.55 mill/uL (4.7-6.1)
[2019-05-03 21:50] LABS: CHLORIDE 96 mEq/L (98-107)
[2019-05-03 21:57] LABS: PHOSPHORUS 3.9 mg/dL (2.5-4.9)
[2019-05-03 22:01] LABS: BETA HYDROXYBUTYRATE 0.2 mMol/L (0.0-0.3)
[2019-05-03 22:06] LABS: CLARITY URINE CLOUDY (CLEAR); COLOR URINE YELLOW (YELLOW); KETONES URINE NEGATIVE (NEGATIVE); LEUKOCYTE ESTERASE URINE 1+ (NEGATIVE); NITRITE URINE NEGATIVE (NEGATIVE); OCCULT BLOOD URINE 2+ (NEGATIVE); PH URINE 5.5 (4.5-8.0); PROTEIN URINE 3+ (NEGATIVE); SPECIFIC GRAVITY URINE 1.017 (1.005-1.030); UROBILINOGEN URINE 0.2 E.U./dL (0.2-1.0)
[2019-05-03] MEDS ORDERED: SODIUM CHLORIDE 0.9% 250 ML IV ONE (22:30)
[2019-05-03] MEDS ORDERED: INSULIN REGULAR (HUMULIN R) 300UNITS/3ML SUBCUT ONE (22:30)
[2019-05-03] MEDS ORDERED: AMLODIPINE 10MG TABLET PO ONE (22:30)
[2019-05-03] MEDS ORDERED: POTASSIUM CHLORIDE 20MEQ TABLET SR PO ONE (22:45)
[2019-05-04] MEDS ORDERED: CEFTRIAXONE 1 G PREMIX 50 ML IV ONE (00:45)
[2019-05-04 04:43] VITALS: BP 136/89
== END 2019-05-04 04:48 | disposition short-term general hospital (02) ==
LOC: ER 18:07
DX: E11.65 Type 2 diabetes mellitus with hyperglycemia (principal); N39.0 Urinary tract infection, site not specified; R19.7 Diarrhea, unspecified; E11.22 Type 2 diabetes mellitus with diabetic chronic kidney disease; I12.0 Hypertensive chronic kidney disease with stage 5 chronic kidney disease or end stage renal disease; N18.6 End stage renal disease; Z99.2 Dependence on renal dialysis; Z79.4 Long term (current) use of insulin
CPT/HCPCS: 36415; 36600; 80053; 81003; 82010; 82375; 82805; 82962; 83690; 83735; 84100; 85025; 87077; 87086; 87186; 93005; 96361; 96365; 96372; 96375; 99285; J0696; J1815; J2405; J7040; J7050; Z7610

== ENCOUNTER 2019-06-14 11:28 | Emergency (ER) | payer MEDICAID ==
[~2019-06-14] VITALS: Ht 188 cm; Wt 82.0 kg
[2019-06-14] MEDS ORDERED: INSULIN REGULAR (HUMULIN R) UD 100 UNITS/ML SYR IV ONE (12:15)
[2019-06-14 13:19] LABS: BASOPHILS % 0.6 % (0.0-2.0); EOSINOPHILS % 2.1 % (0.0-5.0); HEMATOCRIT. 32.5 % (42.0-52.0); HEMOGLOBIN. 10.6 g/dL (14.0-18.0); LYMPHOCYTES % 34.2 % (20.0-50.0); MEAN CORPUSCULAR HEMOGLOBIN 28.3 pg (28.0-32.0); MEAN CORPUSCULAR VOLUME 86.8 fL (80.0-94.0); MEAN PLATELET VOLUME 8.1 fl (7.4-10.4); MONOCYTES % 5.5 % (2.0-8.0); NEUTROPHILS % 57.6 % (40.0-76.0); PLATELET 170 x1000/uL (130-400); RED BLOOD CELL COUNT 3.74 mill/uL (4.7-6.1); RED CELL DISTRIBUTION WIDTH 15.6 % (11.6-14.6)
[2019-06-14 13:29] LABS: CHLORIDE 99 mEq/L (98-107)
[2019-06-14] MEDS ORDERED: INSULIN REGULAR (HUMULIN R) 300UNITS/3ML IV NR (13:45)
[2019-06-14] MEDS ORDERED: INSULIN REGULAR (HUMULIN R) 300UNITS/3ML IV ONE (16:18)
[2019-06-14 20:19] VITALS: BP 193/117
== END 2019-06-14 20:20 | disposition home or self-care (01) ==
LOC: ER 11:28
DX: I12.0 Hypertensive chronic kidney disease with stage 5 chronic kidney disease or end stage renal disease (principal); E11.22 Type 2 diabetes mellitus with diabetic chronic kidney disease; N18.6 End stage renal disease; Z99.2 Dependence on renal dialysis; Z98.890 Other specified postprocedural states; Z79.4 Long term (current) use of insulin; Z79.899 Other long term (current) drug therapy
CPT/HCPCS: 36415; 80053; 82962; 85025; 96374; 96375; 99283; J1815; Z7610

== ENCOUNTER 2019-06-21 05:59 | Emergency (ER) | payer MEDICAID ==
[~2019-06-21] VITALS: Ht 185.4 cm; Wt 82.0 kg
[2019-06-21] MEDS ORDERED: SODIUM CHLORIDE 0.9% 1000ML BAG (SEPSIS BOLUS) IV ONE (06:30)
[2019-06-21 07:24] LABS: BG BASE EXCESS 4.1 mmol/L (-2.0-2.0); BG CARBOXYHEMOGLOBIN 0.3 % (0.5-1.5); BG DEOXYHEMOGLOBIN 8.3 % (0.0-5.0); BG HCO3 ACT 28.9 mmol/L (22.0-26.0); BG OXYGEN SATURATION 91.7 % (92.0-98.5); BG OXYHEMOGLOBIN 91.4 % (94.0-97.0); BG PCO2 44.3 mmHg (35.0-45.0); BG PH 7.432 (7.350-7.450); BG SAMPLE SITE RIGHT BRACHIAL; BG TOTAL HEMOGLOBIN 11.4 g/dL (12.0-18.0); BG VENT MODE ROOM AIR
[2019-06-21 07:37] LABS: BASOPHILS % 0.7 % (0.0-2.0); EOSINOPHILS % 0.5 % (0.0-5.0); HEMATOCRIT. 32.1 % (42.0-52.0); LYMPHOCYTES % 9.4 % (20.0-50.0); MEAN CORPUSCULAR VOLUME 89.7 fL (80.0-94.0); MEAN PLATELET VOLUME 8.8 fl (7.4-10.4); MONOCYTES % 4.4 % (2.0-8.0); PLATELET 185 x1000/uL (130-400); RED BLOOD CELL COUNT 3.58 mill/uL (4.7-6.1); RED CELL DISTRIBUTION WIDTH 15.6 % (11.6-14.6)
[2019-06-21 07:44] LABS: CHLORIDE 105 mEq/L (98-107)
[2019-06-21 07:45] LABS: PROTHROMBIN TIME 10.2 sec (9.6-11.0)
[2019-06-21 07:50] LABS: PHOSPHORUS 4.8 mg/dL (2.5-4.9)
[2019-06-21] MEDS ORDERED: CEFTRIAXONE 1 G PREMIX 50 ML IV ONE (08:15)
[2019-06-21] MEDS ORDERED: INSULIN REGULAR (HUMULIN R) 300UNITS/3ML SUBCUT ONE (08:30)
[2019-06-21] MEDS ORDERED: METRONIDAZOLE 500 MG PREMIX 100 ML IV ONE (10:00)
[2019-06-21] MEDS ORDERED: LIDOCAINE HCL/PF 1% 2ML VIAL ONE (10:35)
[2019-06-21] MEDS ORDERED: VANCOMYCIN 1 G PREMIX 200 ML IV ONE (11:00)
[2019-06-21] MEDS ORDERED: PIPERACILLIN/TAZ 3.375G PREMIX 50 ML IV ONE (11:00)
[2019-06-21 11:51] LABS: CLARITY URINE CLOUDY (CLEAR); COLOR URINE YELLOW (YELLOW); KETONES URINE NEGATIVE (NEGATIVE); LEUKOCYTE ESTERASE URINE 1+ (NEGATIVE); NITRITE URINE NEGATIVE (NEGATIVE); OCCULT BLOOD URINE 3+ (NEGATIVE); PH URINE 6.5 (4.5-8.0); PROTEIN URINE 3+ (NEGATIVE); SPECIFIC GRAVITY URINE 1.022 (1.005-1.030); UROBILINOGEN URINE 0.2 E.U./dL (0.2-1.0)
[2019-06-21 16:45] VITALS: BP 184/118
== END 2019-06-21 16:44 | disposition short-term general hospital (02) ==
LOC: ER 06:16 → CANBEDREQ 12:57 → ER 16:44
DX: A41.9 Sepsis, unspecified organism (principal); E11.65 Type 2 diabetes mellitus with hyperglycemia; I10 Essential (primary) hypertension; N12 Tubulo-interstitial nephritis, not specified as acute or chronic; E86.0 Dehydration; F32.9 Major depressive disorder, single episode, unspecified; N28.9 Disorder of kidney and ureter, unspecified; Z79.899 Other long term (current) drug therapy; Z79.4 Long term (current) use of insulin
CPT/HCPCS: 36415; 36600; 71045; 74176; 80053; 81003; 82375; 82805; 82962; 83605; 83690; 83735; 84100; 84484; 85025; 85610; 87040; 87077; 87086; 87186; 93005; 96361; 96365; 96367; 96372; 99291; C1893; J0696; J1815; J2543; J3370; J3490; J7030; Z7610